=== PATIENT | male | born 1935 | race Two or more races ===

== ENCOUNTER 2022-01-20 14:32 | Inpatient (IN) | payer OTHER ==
[~2022-01-20] VITALS: Ht 167.6 cm; Wt 88.5 kg
[2022-01-20] MEDS ORDERED: ONE-A-DAY MEN'1 EAC1 PO (14:45)
[2022-01-20] MEDS ORDERED: AMLODIPINE BESY10 MG PO (14:46)
[2022-01-20] MEDS ORDERED: JANUMET 50-1,01 EACH PO (14:46)
[2022-01-20] MEDS ORDERED: VITAMIN C500 M1 PO (14:46)
[2022-01-20] MEDS ORDERED: BAYER THERAPY325 MG PO (14:46)
[2022-01-20] MEDS ORDERED: LOSARTAN-HCTZ1 EAC2 PO (14:47)
[2022-01-20] MEDS ORDERED: GLIPIZIDE ER5 MG PO (14:47)
[2022-01-20] MEDS ORDERED: PRAVASTATIN SOD20 MG PO (14:48)
[2022-01-23] MEDS ORDERED: LEVOTHYROXINE25 MC1 (10:44)
[2022-01-28] MEDS ORDERED: LINEZOLID600 MG PO (15:36)
[2022-01-28] MEDS ORDERED: AMLODIPINE BESYL5 MG PO (15:36)
[2022-01-28] MEDS ORDERED: LEVOTHYROXINE25 MCG PO (15:36)
[2022-01-28] MEDS ORDERED: HYZAAR 100-12.1 EACH PO (15:36)
[2022-01-28] MEDS ORDERED: INTESTINEX680 M1 PO (15:36)
== END 2022-01-28 19:17 | DRG 863 ==
LOC: ER 14:32 → SEC-K 01-21 11:31 → MEDI 01-21 15:32
PROVIDERS: ADMIT Internal Medicine; ATTEND Internal Medicine
DX: T81.49XA Infection following a procedure, other surgical site, initial encounter (principal); L03.116 Cellulitis of left lower limb; B95.61 Methicillin susceptible Staphylococcus aureus infection as the cause of diseases classified elsewhere; E03.8 Other specified hypothyroidism; E78.49 Other hyperlipidemia; I10 Essential (primary) hypertension; E11.9 Type 2 diabetes mellitus without complications; Z79.4 Long term (current) use of insulin; Z20.822 Contact with and (suspected) exposure to COVID-19